=== PATIENT | male | born 1975 | race Caucasian/White ===

== ENCOUNTER 2019-06-22 19:44 | Emergency (ER) | payer OTHER ==
--- NOTE | 2019-06-22 19:59 | PDOC ---
Rapid Medical Evaluation Medical Evaluation: 06/22/19 19:58 CC: left thigh pain s/p twisting injury PE:No bony deformity, crepitus or stepoff. Unable to bear weight. Orders: xray Patient will proceed to ED for evaluation. Discharge Disposition - Diagnosis Thigh pain - Referrals - Patient Instructions - Post Discharge Activity
[2019-06-22 20:00] VITALS: BP 160/101; PULSE 77; TEMP 98.7; BMI 26.1
[2019-06-22] MEDS ORDERED: METHOCARBAMOL 500 MG TABLET PO ONE (20:49)
[2019-06-22] MEDS ORDERED: KETOROLAC TROMETHAMINE 30 MG/1 ML VIAL IM ONE (20:49)
[2019-06-22] MEDS ORDERED: KETOROLAC TROMETHAMINE 30 MG/1 ML VIAL ONE (21:02)
[2019-06-22] MEDS ORDERED: METHOCARBAMOL 500 MG TABLET ONE (21:02)
--- NOTE | 2019-06-22 21:24 | PDOC ---
History of Present Illness - General Chief Complaint: Injury Stated Complaint: LEG PAIN Time Seen by Provider: 06/22/19 19:48 History Source: Patient Exam Limitations: Clinical Condition - History of Present Illness Initial Comments: 06/22/19 21:19 Patient with no significant past medical history present with complaint of severe left eye pain to distal and medial aspect of left thigh status post twisting left thigh muscle 3 hours ago. Patient reported hearing and loud sound from a car which he turned suddenly twisting her left thigh and felt a popping in the left thigh. Patient reported unable to bear weight on left thigh and falls every time he tried to walk on left leg. Patient reported severe point tenderness over lateral aspect of middle part of left thigh muscle. Denies numbness or tingling sensation. Denies any previous injury to left eye. Denies knee pain or hip pain Occurred: reports: just prior to arrival Past History - Past Medical History Allergies/Adverse Reactions: Allergies Allergy/AdvReac Type Severity Reaction Status Date / Time No Known Allergies Allergy Verified 06/22/19 20:00 Home Medications: Ambulatory Orders NK [No Known Home Medication] 06/22/19 COPD: No - Psycho Social/Smoking Cessation Hx Smoking History: Never smoked Review of Systems - Review of Systems Able to Perform ROS?: Yes Is the patient limited Hebrew proficient: No Constitutional: Yes: Weakness (left thigh) HEENTM: No: Symptoms Reported, See HPI, Eye Pain, Blurred Vision, Tearing, Recent change in vision, Double Vision, Cataracts, Ear Pain, Ocular Prothesis, Ear Discharge, Nose Pain, Nose Congestion, Tinnitus, Nose Bleeding, Hearing Loss , Throat Pain, Throat Swelling, Mouth Pain, Dental Problems, Difficulty Swallowing, Mouth Swelling, Other Respiratory: No: Symptoms reported, See HPI, Cough, Orthopnea, Shortness of Breath, SOB with Exertion, SOB at Rest, Stridor, Wheezing, Productive cough, Hemoptysis, Other Cardiac (ROS): No: Symptoms Reported Musculoskeletal: Yes: Symptoms Reported, See HPI, Muscle Pain (left thigh) Integumentary: No: Symptoms Reported Neurological: Yes: Weakness (left LE). No: Symptoms reported All Other Systems: Reviewed and Negative *Physical Exam - Vital Signs Last Vital Signs Temp Pulse Resp BP Pulse Ox 98.7 F 77 18 160/101 H 99 06/22/19 19:55 06/22/19 19:55 06/22/19 19:55 06/22/19 19:55 06/22/19 19:55 - Physical Exam 06/22/19 21:22 GENERAL: Well developed, well nourished. Awake and alert in moderate acute distress. PULMONARY: No evidence of respiratory distress. MUSCULOSKELETAL : Moderate tenderness over lateral and anterior aspect of left thigh muscle from medial side of thigh to distal over quadricep insertion site. Mild bulging to infrapatellar region over quadricep tendon. Mild swelling over left thigh over distal anterior aspect SKIN: Warm and dry. Normal capillary refill. No bruising or ecchymosis NEUROLOGICAL: Alert, awake, appropriate. No motor deficits in the lower extremities. Gait is normal without ataxia. PSYCHIATRIC: Cooperative. Good eye contact. Appropriate mood and affect. General Appearance: Yes: Nourished, Appropriately Dressed, Apparent Distress, Moderate Distress ED Treatment Course - RADIOLOGY Radiology Studies Ordered: Category Date Time Status LOWER EXTREMITY MRI W/O-LEFT [MRI] Stat MRI 06/22/19 20:57 Ordered - Medications Given in the ED: ED Medications Discontinued Medications Generic Name Dose Route Start Last Admin Trade Name Freq PRN Reason Stop Dose Admin Ketorolac Tromethamine 30 mg 06/22/19 20:49 06/22/19 21:11 Toradol Injection - IM 06/22/19 20:50 30 mg ONCE ONE Administration Methocarbamol 1,000 mg 06/22/19 20:49 06/22/19 21:11 Robaxin - PO 06/22/19 20:50 1,000 mg ONCE ONE Administration Medical Decision Making - Medical Decision Making 06/22/19 21:21 Patient with no significant past medical history present with complaint of severe left eye pain to distal and medial aspect of left thigh status post twisting left thigh muscle 3 hours ago. Patient reported hearing and loud sound from a car which he turned suddenly twisting her left thigh and felt a popping in the left thigh. Patient reported unable to bear weight on left thigh and falls every time he tried to walk on left leg. Patient reported severe point tenderness over lateral aspect of middle part of left thigh muscle. Denies numbness or tingling sensation. Denies any previous injury to left eye. Denies knee pain or hip pain Exam significant for moderate tenderness to palpation to left middle and distal thigh muscle with bulging sensation to infrapatellar region over quadricep insertion site. X-ray of left upper leg shows no acute abnormality however quadricep rupture would not show an x-ray and patient will need MRI. MRI of the left lower extremity ordered to rule out quadricep rupture. Toradol 30 mg IM ordered for pain Robaxin thousand milligrams p.o. ordered for spasm 06/22/19 22:28 Patient still pending MRI of left lower extremity to rule out quadricep rupture. Patient signed out to BESS Barajas for follow-up care Discharge - Discharge Information Problems reviewed: Yes Clinical Impression/Diagnosis: Injury of quadriceps muscle Condition: Stable Disposition: HOME - Follow up/Referral Referrals: Ld Freeman MD [Staff Physician] - - Patient Discharge Instructions Patient Printed Discharge Instructions: How To Perform RICE (Rest, Ice, Compress, Elevate) Additional Instructions: You were seen in the Emergency Department for evaluation of leg pain and found to have a partial tendon tear. You should wear the knee immobilizer at all times. Follow up with orthopedics (Dr. Freeman/Reji) on Tuesday. Information provided. Review the handout provided at discharge. For pain you may take Tylenol 650mg every 6 hours and Ibuprofen 600mg every 6-8 hours, alternating them each time. Return to the Emergency Department if you develop fevers, chest pain, trouble breathing, changes in sensation, numbness/tingling, worsening symptoms, or any new/concerning symptoms. - Post Discharge Activity Work/Back to School Note: Back to Work
--- NOTE | 2019-06-23 02:40 | PDOC ---
*Physical Exam - Vital Signs Last Vital Signs Temp Pulse Resp BP Pulse Ox 98.7 F 77 18 160/101 H 99 06/22/19 19:55 06/22/19 19:55 06/22/19 19:55 06/22/19 19:55 06/22/19 19:55 ED Treatment Course - Medications Given in the ED: ED Medications Discontinued Medications Generic Name Dose Route Start Last Admin Trade Name Freq PRN Reason Stop Dose Admin Ketorolac Tromethamine 30 mg 06/22/19 20:49 06/22/19 21:11 Toradol Injection - IM 06/22/19 20:50 30 mg ONCE ONE Administration Methocarbamol 1,000 mg 06/22/19 20:49 06/22/19 21:11 Robaxin - PO 06/22/19 20:50 1,000 mg ONCE ONE Administration Medical Decision Making - Medical Decision Making Patient signed out to me by BESS Zamora pending results of MRI MRI results: IMPRESSION: Tear of the vastus lateralis tendon with partial muscle tears of the vastus lateralis, vastus medialis and vastus medius muscles, but no focal hematoma. D/W Dr. Bergeron - would like ortho consult Patient signed out to resident Allen pending ortho consult Placed in knee immbolizer 06/23/19 02:37 Discharge - Discharge Information Problems reviewed: Yes Clinical Impression/Diagnosis: Injury of quadriceps muscle Condition: Stable - Follow up/Referral - Patient Discharge Instructions - Post Discharge Activity
--- NOTE | 2019-06-23 02:53 | PDOC ---
*Physical Exam - Vital Signs Last Vital Signs Temp Pulse Resp BP Pulse Ox 98.7 F 77 18 160/101 H 99 06/22/19 19:55 06/22/19 19:55 06/22/19 19:55 06/22/19 19:55 06/22/19 19:55 ED Treatment Course - Medications Given in the ED: ED Medications Discontinued Medications Generic Name Dose Route Start Last Admin Trade Name Marga PRN Reason Stop Dose Admin Ketorolac Tromethamine 30 mg 06/22/19 20:49 06/22/19 21:11 Toradol Injection - IM 06/22/19 20:50 30 mg ONCE ONE Administration Methocarbamol 1,000 mg 06/22/19 20:49 06/22/19 21:11 Robaxin - PO 06/22/19 20:50 1,000 mg ONCE ONE Administration Medical Decision Making - Medical Decision Making Pt received as sign out Case discussed with [place] KELLOGG (ortho) Will place pt in Pt to f/u w/ Dr. Freeman or Reji Tuesday Plan for D/C w/ Ortho f/u Plan for D/C w/ PCP f/u Discharge instructions and return precautions given Patient in agreement and verbalized understanding Dispo: Home 06/23/19 02:47 Discharge - Discharge Information Problems reviewed: Yes Clinical Impression/Diagnosis: Injury of quadriceps muscle Condition: Stable Disposition: HOME - Admission No - Follow up/Referral Referrals: Ld Freeman MD [Staff Physician] - - Patient Discharge Instructions Patient Printed Discharge Instructions: How To Perform RICE (Rest, Ice, Compress, Elevate) Additional Instructions: You were seen in the Emergency Department for evaluation of leg pain and found to have a partial tendon tear. You should wear the knee immobilizer at all times. Follow up with orthopedics (Dr. Freeman/Reji) on Tuesday. Information provided. Review the handout provided at discharge. For pain you may take Tylenol 650mg every 6 hours and Ibuprofen 600mg every 6-8 hours, alternating them each time. Return to the Emergency Department if you develop fevers, chest pain, trouble breathing, changes in sensation, numbness/tingling, worsening symptoms, or any new/concerning symptoms. - Post Discharge Activity Work/Back to School Note: Back to Work
== END 2019-06-23 03:21 | disposition home or self-care (01) ==
LOC: JER 19:44 → JERFT 19:44 → JER 06-23 03:21
PROC: 2W3RXYZ Immobilization of Left Lower Leg using Other Device (ICD-10-PCS; principal; 2019-06-22)
PROC: 3E0233Z Introduction of Anti-inflammatory into Muscle, Percutaneous Approach (ICD-10-PCS; 2019-06-22)
DX: S76.102A Unspecified injury of left quadriceps muscle, fascia and tendon, initial encounter (principal); X50.1XXA Overexertion from prolonged static or awkward postures, initial encounter; Y93.89 Activity, other specified; Y92.488 Other paved roadways as the place of occurrence of the external cause; Y99.8 Other external cause status
CPT/HCPCS: 29530; 73552-TC-LT-FY; 73718-TC-LT; 96372; 99284-25